=== PATIENT | male | born 1970 | race American Indian/Alaskan Native ===

== ENCOUNTER 2016-10-12 00:06 | Emergency (ER) | payer OTHER ==
--- NOTE | 2016-10-12 06:05 | Emergency Department Report ---
HPI - General Chief Complaint: Upper Respiratory Infection Time Seen by Provider: 10/12/16 05:13 - HPI HPI: 46-year-old male presents today with cold symptoms, body aches, wheezing, fever 1 week. Tmax = 101. Positive for cough with yellow phlegm. Tried Tylenol with fever relief and TheraFlu with temporary relief. Past a history of bronchitis and states this feels similar. Denies nausea, vomiting, chest pain, shortness of breath, abdominal pain. ED Past Medical Hx - Past Medical History Previous Medical History?: Yes Additional medical history: SCOLIOSIS - Surgical History Past Surgical History?: Yes Additional Surgical History: LEFT LEG SURGERY - Social History Smoking Status: Heavy Tobacco Smoker Substance Use Type: None - Medications Home Medications: Home Medications Medication Instructions Recorded Confirmed Last Taken Type Ibuprofen [Motrin] 800 mg PO Q8HR PRN #30 tablet 11/28/15 Unknown Rx Azithromycin [Zithromax Z-KEATON] 250 mg PO DAILY 5 Days 10/12/16 Unknown Rx Fluticasone [Flonase] 1 spray NS QDAY #1 bottle 10/12/16 Unknown Rx guaiFENesin/DEXTROMETHORPHAN 1 tab PO BID #30 tab 10/12/16 Unknown Rx [Mucinex DM ER 600-30 mg TAB] ED Review of Systems ROS: Stated complaint: BRONCHITIS, FEVER Other details as noted in HPI Constitutional: fever. denies: chills Eyes: denies: eye pain ENT: throat pain, congestion. denies: ear pain Respiratory: cough, wheezing. denies: shortness of breath Cardiovascular: denies: chest pain, palpitations Endocrine: no symptoms reported Gastrointestinal: denies: abdominal pain, nausea, vomiting Skin: denies: rash Neurological: denies: headache, weakness Physical Exam - Physical Exam Vital Signs: Vital Signs 10/12/16 00:15 Temperature 98.5 F Pulse Rate 108 H Respiratory 20 Rate Blood Pressure 137/92 O2 Sat by Pulse 100 Oximetry Physical Exam: GENERAL: The patient is well-developed and well-nourished. Patient is in NAD. HEAD: Normocephalic. Atraumatic. EYES: PERRL. EARS: External auditory canals and tympanic membranes clear; hearing grossly intact. NOSE: Normal nasal mucosa with minimal nasal discharge. THROAT: Positive for edema. No swelling or exudates noted. NECK: Supple, nontender, without lymphadenopathy. CHEST/LUNGS: Clear to auscultation throughout. HEART/CARDIOVASCULAR: Regular rate and rhythm. No murmurs, rubs or gallops. ABDOMEN: Abdomen is soft, nontender. Bowel sounds normoactive. No guarding or rebound tenderness. EXTREMITIES: Peripheral pulses intact. Capillary refill less than 2 seconds. NEURO: Alert and oriented x 3. Normal gait. ED Course Vital Signs 10/12/16 00:15 Temperature 98.5 F Pulse Rate 108 H Respiratory 20 Rate Blood Pressure 137/92 O2 Sat by Pulse 100 Oximetry ED Medical Decision Making - Lab Data Vital Signs 10/12/16 00:15 Temperature 98.5 F Pulse Rate 108 H Respiratory 20 Rate Blood Pressure 137/92 O2 Sat by Pulse 100 Oximetry - Medical Decision Making 46-year-old male presents today with cold symptoms, fever and wheezing. Positive for history of bronchitis and denies chest x-ray. Patient is in no acute distress at this time. He will be discharged home and is encouraged to follow up with a primary care provider. He will be sent home on azithromycin, Mucinex DM, Flonase and is encouraged to return to the emergency room for any worsening symptoms. Critical care attestation.: If time is entered above; I have spent that time in minutes in the direct care of this critically ill patient, excluding procedure time. ED Disposition Clinical Impression: Bronchitis URI (upper respiratory infection) Qualifiers: URI type: unspecified URI Qualified Code(s): J06.9 - Acute upper respiratory infection, unspecified Disposition: DISCHARGED TO HOME OR SELFCARE Is pt being admited?: No Does the pt Need Aspirin: No Condition: Stable Instructions: Upper Respiratory Infection (ED), Acute Bronchitis (ED), Chronic Bronchitis (ED) Additional Instructions: Follow-up with primary care provider. Return to emergency department if symptoms worsen. Prescriptions: Fluticasone [Flonase] 1 spray NS QDAY #1 bottle guaiFENesin/DEXTROMETHORPHAN [Mucinex DM ER 600-30 mg TAB] 1 tab PO BID #30 tab Azithromycin [Zithromax Z-KEATON] 250 mg PO DAILY 5 Days Referrals: PRIMARY CARE, [Primary Care Provider] - 3-5 Days [facility] [Outside] - 3-5 Days Forms: Work/School Release Form(ED) Time of Disposition: 06:07
[2016-10-12 06:14] VITALS: BP 135/88
== END 2016-10-12 06:38 | disposition home or self-care (01) ==
LOC: ED 00:06
DX: J06.9 Acute upper respiratory infection, unspecified (principal); J40 Bronchitis, not specified as acute or chronic; M79.1 Myalgia; Z72.0 Tobacco use
CPT/HCPCS: 99282

== ENCOUNTER 2018-12-07 01:51 | Emergency (ER) | payer OTHER ==
[2018-12-07 02:03] VITALS: BP 133/76
[2018-12-07] MEDS ORDERED: DELTASONE PO STA (02:46)
[2018-12-07] MEDS ORDERED: PROVENTIL IH STA (02:46)
--- NOTE | 2018-12-07 05:06 | Emergency Department Report ---
ED Asthma HPI - General Chief Complaint: Upper Respiratory Infection Stated Complaint: WHEEZING Time Seen by Provider: 12/07/18 02:45 Source: patient Mode of arrival: Ambulatory Limitations: No Limitations - History of Present Illness Initial Comments: Was at work when he goes and out of cold freezers into normal climate and develop a cough which which turned into a wheeze have his inhaler drug use. Last his son's inhaler, but he was out as well as some emergency department for relief. No hemoptysis, no hematemesis. No fever MD Complaint: wheezing -: Gradual Severity: mild Context: ran out of meds Associated Symptoms: none Treatments Prior to Arrival: inhaled bronchodilator - Related Data Current Asthma Therapy: none Previous Rx's Medication Instructions Recorded Last Taken Type Ibuprofen [Motrin] 800 mg PO Q8HR PRN #30 tablet 11/28/15 Unknown Rx Azithromycin [Zithromax Z-KEATON] 250 mg PO DAILY 5 Days tablet 10/12/16 Unknown Rx Fluticasone [Flonase] 1 spray NS QDAY #1 bottle 10/12/16 Unknown Rx guaiFENesin/DEXTROMETHORPHAN 1 tab PO BID #30 tab 10/12/16 Unknown Rx [Mucinex DM ER 600-30 mg TAB] ALBUTEROL Inhaler (OR & NICU) 1 puff IH Q4-6H PRN #1 inha 12/07/18 Unknown Rx [ProAir HFA Inhaler] predniSONE [Deltasone] 20 mg PO QDAY #5 tab 12/07/18 Unknown Rx Allergies Allergy/AdvReac Type Severity Reaction Status Date / Time No Known Allergies Allergy Verified 05/01/15 22:51 ED Review of Systems ROS: Stated complaint: WHEEZING Other details as noted in HPI Constitutional: denies: chills, fever Eyes: denies: eye pain, eye discharge, vision change ENT: denies: ear pain, throat pain Respiratory: cough, wheezing. denies: shortness of breath Cardiovascular: denies: chest pain, palpitations Endocrine: no symptoms reported Gastrointestinal: denies: abdominal pain, nausea, diarrhea Genitourinary: denies: urgency, dysuria Musculoskeletal: denies: back pain, joint swelling, arthralgia Skin: denies: rash, lesions Neurological: denies: headache, weakness, paresthesias Psychiatric: denies: anxiety, depression Hematological/Lymphatic: denies: easy bleeding, easy bruising ED Past Medical Hx - Past Medical History Previous Medical History?: Yes Additional medical history: SCOLIOSIS. bronchitis - Surgical History Past Surgical History?: Yes Additional Surgical History: LEFT LEG SURGERY with estevan - Social History Smoking Status: Current Every Day Smoker Substance Use Type: None - Medications Home Medications: Home Medications Medication Instructions Recorded Confirmed Last Taken Type Ibuprofen [Motrin] 800 mg PO Q8HR PRN #30 tablet 11/28/15 Unknown Rx Azithromycin [Zithromax Z-KEATON] 250 mg PO DAILY 5 Days tablet 10/12/16 Unknown Rx Fluticasone [Flonase] 1 spray NS QDAY #1 bottle 10/12/16 Unknown Rx guaiFENesin/DEXTROMETHORPHAN 1 tab PO BID #30 tab 10/12/16 Unknown Rx [Mucinex DM ER 600-30 mg TAB] ALBUTEROL Inhaler (OR & NICU) 1 puff IH Q4-6H PRN #1 inha 12/07/18 Unknown Rx [ProAir HFA Inhaler] predniSONE [Deltasone] 20 mg PO QDAY #5 tab 12/07/18 Unknown Rx ED Physical Exam - General Limitations: No Limitations General appearance: alert, in no apparent distress - Head Head exam: Present: atraumatic, normocephalic - Eye Eye exam: Present: normal appearance - ENT ENT exam: Present: mucous membranes moist - Neck Neck exam: Present: normal inspection - Respiratory Respiratory exam: Present: normal lung sounds bilaterally, wheezes. Absent: respiratory distress - Cardiovascular Cardiovascular Exam: Present: regular rate, normal rhythm. Absent: systolic murmur, diastolic murmur, rubs, gallop - GI/Abdominal GI/Abdominal exam: Present: soft, normal bowel sounds - Rectal Rectal exam: Present: deferred - Extremities Exam Extremities exam: Present: normal inspection - Back Exam Back exam: Present: normal inspection - Neurological Exam Neurological exam: Present: alert, oriented X3 - Psychiatric Psychiatric exam: Present: normal affect, normal mood - Skin Skin exam: Present: warm, dry, intact, normal color. Absent: rash ED Course Vital Signs 12/07/18 12/07/18 01:59 02:59 Temperature 98.2 F Pulse Rate 70 Respiratory 18 18 Rate Blood Pressure 133/76 O2 Sat by Pulse 100 Oximetry ED Medical Decision Making - Medical Decision Making This is a 48-year-old male, talking in normal sentences but having some wheezing responded well to the albuterol treatment. Wheezing was 100% resolved. Discussed with him the need for compliance with medication regimen and to avoid asthma attack. Also describes recent peak flows. Critical care attestation.: If time is entered above; I have spent that time in minutes in the direct care of this critically ill patient, excluding procedure time. ED Disposition Clinical Impression: Wheezing Disposition: DC-01 TO HOME OR SELFCARE Is pt being admited?: No Does the pt Need Aspirin: No Condition: Stable Instructions: Reactive Airways Disease (ED) Prescriptions: ALBUTEROL Inhaler (OR & NICU) [ProAir HFA Inhaler] 1 puff IH Q4-6H PRN #1 inha PRN Reason: Cough predniSONE [Deltasone] 20 mg PO QDAY #5 tab Referrals: ANIVAL SCHMITT MD [Primary Care Provider] - 3-5 Days Forms: Work/School Release Form(ED)
== END 2018-12-07 04:57 | disposition home or self-care (01) ==
LOC: ED 01:51
DX: R06.2 Wheezing (principal); R05 Cough; F17.200 Nicotine dependence, unspecified, uncomplicated
CPT/HCPCS: 94640; 99282; J7512

== ENCOUNTER 2018-12-17 23:17 | Emergency (ER) | payer OTHER ==
[2018-12-17 23:32] VITALS: BP 132/73
--- NOTE | 2018-12-18 01:57 | Emergency Department Report ---
ED Lower Extremity HPI - General Chief Complaint: Extremity Injury, Lower Stated Complaint: WORK INJURY LEFT LEG Time Seen by Provider: 12/18/18 01:53 Source: patient Mode of arrival: Ambulatory Limitations: No Limitations - History of Present Illness Initial Comments: 32-year-old -[place] male presents to the emergency room for left lower leg pain. Patient states while at work he had fell into a drain on morning approximately 5:20 am. Patient reports to drinking is large enough to place a hole body in. Patient reports when he stepped into it he was able to grab onto an object outside of the drain and pull himself up. Patient reports that he had left lower extremity beach swelling and pain the swelling has gone down. Patient reports that he had taken Tylenol and Motrin and muscle relaxant but not altogether. Patient reports is able to ambulate but has a history of rods in his leg and often will secondary to one leg is shorter than the other. MD Complaint: leg injury -: days(s) (1) Injury: Knee: Left Place: work Severity: mild Improves With: NSAID Context: fall Treatments Prior to Arrival: NSAIDS - Related Data Previous Rx's Medication Instructions Recorded Last Taken Type Ibuprofen [Motrin] 800 mg PO Q8HR PRN #30 tablet 11/28/15 Unknown Rx Azithromycin [Zithromax Z-KEATON] 250 mg PO DAILY 5 Days tablet 10/12/16 Unknown Rx Fluticasone [Flonase] 1 spray NS QDAY #1 bottle 10/12/16 Unknown Rx guaiFENesin/DEXTROMETHORPHAN 1 tab PO BID #30 tab 10/12/16 Unknown Rx [Mucinex DM ER 600-30 mg TAB] ALBUTEROL Inhaler (OR & NICU) 1 puff IH Q4-6H PRN #1 inha 12/07/18 Unknown Rx [ProAir HFA Inhaler] predniSONE [Deltasone] 20 mg PO QDAY #5 tab 12/07/18 Unknown Rx Allergies Allergy/AdvReac Type Severity Reaction Status Date / Time No Known Allergies Allergy Verified 05/01/15 22:51 ED Review of Systems ROS: Stated complaint: WORK INJURY LEFT LEG Other details as noted in HPI Comment: All other systems reviewed and negative Constitutional: denies: chills, fever Eyes: denies: eye pain, eye discharge, vision change Musculoskeletal: arthralgia ED Past Medical Hx - Past Medical History Additional medical history: SCOLIOSIS. bronchitis - Surgical History Additional Surgical History: LEFT THIGH LEG SURGERY with estevan - Social History Smoking Status: Current Every Day Smoker Substance Use Type: Alcohol, Marijuana - Medications Home Medications: Home Medications Medication Instructions Recorded Confirmed Last Taken Type Ibuprofen [Motrin] 800 mg PO Q8HR PRN #30 tablet 11/28/15 Unknown Rx Azithromycin [Zithromax Z-KEATON] 250 mg PO DAILY 5 Days tablet 10/12/16 Unknown Rx Fluticasone [Flonase] 1 spray NS QDAY #1 bottle 10/12/16 Unknown Rx guaiFENesin/DEXTROMETHORPHAN 1 tab PO BID #30 tab 10/12/16 Unknown Rx [Mucinex DM ER 600-30 mg TAB] ALBUTEROL Inhaler (OR & NICU) 1 puff IH Q4-6H PRN #1 inha 12/07/18 Unknown Rx [ProAir HFA Inhaler] predniSONE [Deltasone] 20 mg PO QDAY #5 tab 12/07/18 Unknown Rx ED Physical Exam - General Limitations: No Limitations General appearance: alert, in no apparent distress - Head Head exam: Present: atraumatic, normocephalic - Eye Eye exam: Present: normal appearance - ENT ENT exam: Present: mucous membranes moist - Neck Neck exam: Present: normal inspection - Expanded Lower Extremity Exam Left Hip exam: Present: full ROM Upper Leg exam: Present: normal inspection Knee exam: Present: normal inspection Lower Leg exam: Present: full ROM. Absent: tenderness, swelling, abrasion, laceration, ecchymosis, deformity, crepidus, dislocation Ankle exam: Present: normal inspection, full ROM - Neurological Exam Neurological exam: Present: alert, oriented X3 - Psychiatric Psychiatric exam: Present: normal affect, normal mood - Skin Skin exam: Present: warm, dry, intact, normal color. Absent: rash ED Course Vital Signs 12/17/18 12/17/18 23:23 23:47 Temperature 98.2 F 98.2 F Pulse Rate 75 75 Respiratory 18 16 Rate Blood Pressure 132/73 O2 Sat by Pulse 100 99 Oximetry ED Lower Extremity MDM - Medical Decision Making Patient has been evaluated by this provider in fast track. On examination patient has no abnormalities no swelling or tenderness no discoloration. Discussed the patient to continue taking Tylenol or Motrin for pain management. He can follow-up with a primary care provider if his symptoms persist or gets worse. Critical care attestation.: If time is entered above; I have spent that time in minutes in the direct care of this critically ill patient, excluding procedure time. ED Disposition Clinical Impression: Injury of lower leg, left Qualifiers: Encounter type: initial encounter Qualified Code(s): S89.92XA - Unspecified injury of left lower leg, initial encounter Disposition: TO HOME OR SELFCARE Is pt being admited?: No Does the pt Need Aspirin: No Condition: Stable Instructions: Arthralgia (ED) Additional Instructions: Tylenol or Motrin for pain management. If symptoms persist or gets worse follow-up with her primary care provider. Referrals: KAYLIE HYMAN MD [Primary Care Provider] - 3-5 Days
== END 2018-12-18 02:11 | disposition home or self-care (01) ==
LOC: ED 23:17
DX: S89.92XA Unspecified injury of left lower leg, initial encounter (principal); F17.200 Nicotine dependence, unspecified, uncomplicated; F12.10 Cannabis abuse, uncomplicated; Z98.890 Other specified postprocedural states; W17.1XXA Fall into storm drain or manhole, initial encounter; Y93.89 Activity, other specified; Y92.69 Other specified industrial and construction area as the place of occurrence of the external cause; Y99.8 Other external cause status
CPT/HCPCS: 99282

== ENCOUNTER 2019-05-09 20:13 | Emergency (ER) | payer OTHER ==
[2019-05-09 21:02] VITALS: BP 141/71
[2019-05-09] MEDS ORDERED: BOOSTRIX IM ONE (21:12)
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
== END 2019-05-09 21:40 | disposition home or self-care (01) ==
LOC: ED 20:13
DX: S20.369A Insect bite (nonvenomous) of unspecified front wall of thorax, initial encounter (principal); F17.200 Nicotine dependence, unspecified, uncomplicated; Z98.890 Other specified postprocedural states; Z79.899 Other long term (current) drug therapy; W57.XXXA Bitten or stung by nonvenomous insect and other nonvenomous arthropods, initial encounter; Y93.89 Activity, other specified; Y92.017 Garden or yard in single-family (private) house as the place of occurrence of the external cause; Y99.8 Other external cause status
CPT/HCPCS: 90471; 90715; 99281